=== PATIENT | female | born 1955 | race Caucasian/White ===

== ENCOUNTER 2022-08-18 12:18 | Outpatient (CLI) | payer OTHER | END 2022-08-18 12:19 | disposition home or self-care (01) | LOC: CSHMAMMO 12:18 | PROVIDERS: ATTEND Nurse Practitioner Family | DX: Z12.31 Encounter for screening mammogram for malignant neoplasm of breast (principal) | CPT/HCPCS: 77063; 77067 ==

== ENCOUNTER 2022-11-01 09:09 | Emergency (ER) | payer OTHER ==
[2022-11-01 09:54] LABS: #Basophils 0.1 10x3/uL (0.0-0.2); #Eosinphils 0.2 10x3/uL (0.0-0.5); #Monocytes 1.2 10x3/uL (0.0-1.1); #Neutrophils 9.7 10x3/uL (1.5-8.4); %Basophils 0.4 % (0.0-2.0); %Eosinophils 1.6 % (0.0-6.0); %Lymphocytes 19.2 % (18.0-47.0); %Monocytes 8.9 % (0.0-10.0); %Neutrophils 69.5 % (40.0-75.0); Hemoglobin 14.6 g/dL (12.0-15.5); Mean Corpuscular HGB CONC 33.1 g/dL (32.0-36.0); Mean Corpuscular Hemoglobin 30.7 pg (27.0-33.0); Mean Corpuscular Volume 92.6 fl (81.6-98.3); Mean Platelet Volume 10.4 fl (7.4-10.4); Platelet Count 279 10x3/uL (150-450); RBC Distribution Width 12.6 % (11.5-14.5); Red Blood Cell (RBC) Count 4.76 10x6/uL (3.90-5.03)
[2022-11-01 09:54] LABS: Bilirubin Neg (Negative); Blood, Urine 150 (Negative); Clarity Cloudy (Clear); Glucose, Urine (Dipstick) Normal (Negative); Ketone, Urine Negative (Negative); Leukocyte 500 (Negative); Nitrite Negative (Negative); Protein, Urine (Dipstick) 30 mg/dl (Neg-Trace); Specific Gravity, Urine 1.005 (1.005-1.030); Urobilinogen Normal mg/dL (Less than 2)
[2022-11-01 10:07] LABS: ALT (SGPT) 30 U/L (8-55); AST (SGOT) 20 U/L (5-34); Albumin 4.4 g/dL (3.4-4.8); Alkaline Phosphatase 70 U/L (40-110); Anion Gap 14 mmol/L (10-20); BUN (Urea Nitrogen) 9 mg/dL (9.8-20.1); Bilirubin, Total 0.6 mg/dL (0.2-1.2); Calc. Creatinine Clearance 0 mL/min (70-130); Calcium 9.6 mg/dL (7.8-10.44); Carbon Dioxide 25 mmol/L (23-31); Chloride 104 mmol/L (98-107); Estimated GFR 98; Globulin 3.2 g/dL (2.4-3.5); Glucose 105 mg/dL (80-115); Lipase 69 U/L (8-78); Potassium 4.1 mmol/L (3.5-5.1); Protein, Total 7.6 g/dL (5.8-8.1); Sodium 139 mmol/L (136-145)
[2022-11-01 10:09] LABS: Bacteria/HPF 4+ HPF (None Seen); RBC/HPF 0-3 HPF (0-3); Squamous Epithelial 0-3 HPF (0-3); WBC/HPF 21-50 HPF (0-3)
[2022-11-01 10:10] LABS: Mucous/LPF 1+ LPF (<2+)
== END 2022-11-01 12:10 | disposition home or self-care (01) ==
LOC: CSHERS 09:09
DX: N30.01 Acute cystitis with hematuria (principal); N13.30 Unspecified hydronephrosis; I10 Essential (primary) hypertension; E78.5 Hyperlipidemia, unspecified
CPT/HCPCS: 36415; 74176; 80053; 81003; 81015; 83605; 83690; 85025; 87077; 87086; 87186

== ENCOUNTER 2023-08-30 11:55 | Outpatient (CLI) | payer OTHER | END 2023-08-30 11:56 | disposition home or self-care (01) | LOC: CSHCT 11:55 | PROVIDERS: ATTEND Psychiatry & Neurology Neurology | DX: M54.2 Cervicalgia (principal); M47.812 Spondylosis without myelopathy or radiculopathy, cervical region | CPT/HCPCS: 72125 ==

== ENCOUNTER 2023-09-27 08:43 | Outpatient (CLI) | payer OTHER, MEDICAID | END 2023-09-27 08:44 | disposition home or self-care (01) | LOC: CSHCT 08:43 | PROVIDERS: ATTEND Family Medicine | DX: K42.9 Umbilical hernia without obstruction or gangrene (principal); R91.1 Solitary pulmonary nodule; N13.30 Unspecified hydronephrosis; N28.82 Megaloureter; R16.0 Hepatomegaly, not elsewhere classified; K43.9 Ventral hernia without obstruction or gangrene | CPT/HCPCS: 74170; 82565 ==

== ENCOUNTER 2024-06-18 07:53 | Outpatient (CLI) | payer OTHER | END 2024-06-18 07:54 | disposition home or self-care (01) | LOC: CSHRAD 07:53 | PROVIDERS: ATTEND Surgery | DX: R13.10 Dysphagia, unspecified (principal); K21.9 Gastro-esophageal reflux disease without esophagitis | CPT/HCPCS: 74246 ==

== ENCOUNTER 2024-10-17 15:26 | Emergency (ER) | payer OTHER ==
[2024-10-17 17:21] LABS: Anion Gap 13 mmol/L (10-20); BUN (Urea Nitrogen) 14 mg/dL (9.8-20.1); Calc. Creatinine Clearance 0 mL/min (70-130); Carbon Dioxide 22 mmol/L (23-31); Chloride 106 mmol/L (98-107); Estimated GFR 81; Glucose 79 mg/dL (80-115); Potassium 4.3 mmol/L (3.5-5.1); Sodium 137 mmol/L (136-145)
[2024-10-17 17:45] LABS: #Basophils 0.03 10x3/uL (0.0-0.2); #Eosinophils 0.34 10x3/uL (0.0-0.5); #Monocytes 0.87 10x3/uL (0.0-1.1); #Neutrophils 4.01 10x3/uL (1.5-8.4); %Basophils 0.3 % (0.0-2.0); %Eosinophils 3.7 % (0.0-6.0); %Lymphocytes 42.7 % (18.0-47.0); %Monocytes 9.5 % (0.0-10.0); %Neutrophils 43.7 % (40.0-75.0); Hematocrit 39.8 % (34.9-44.5); Hemoglobin 13.1 g/dL (12.0-15.5); Mean Corpuscular HGB CONC 32.9 g/dL (32.0-36.0); Mean Corpuscular Hemoglobin 30.4 pg (27.0-33.0); Mean Corpuscular Volume 92.3 fL (81.6-98.3); Mean Platelet Volume 9.8 fL (7.4-10.4); Platelet Count 248 10x3/uL (150-450); RBC Distribution Width 12.5 % (11.5-14.5); Red Blood Cell (RBC) Count 4.31 10x6/uL (3.90-5.03); White Blood Cell (WBC) Count 9.2 10x3/uL (3.5-10.5)
== END 2024-10-17 18:57 | disposition home or self-care (01) ==
LOC: CSHERS 15:26
DX: R07.81 Pleurodynia (principal); I10 Essential (primary) hypertension; J44.89 Other specified chronic obstructive pulmonary disease; X50.0XXA Overexertion from strenuous movement or load, initial encounter; Y93.89 Activity, other specified; Z87.891 Personal history of nicotine dependence; Z79.899 Other long term (current) drug therapy
CPT/HCPCS: 71260; 80048; 85025